=== PATIENT | male | born 1990 | race Caucasian/White ===

== ENCOUNTER 2017-05-16 18:45 | Emergency (ER) | END 2017-05-16 23:47 | disposition home or self-care (01) ==

== ENCOUNTER 2017-06-04 20:03 | Emergency (ER) | END 2017-06-04 21:19 | disposition home or self-care (01) ==

== ENCOUNTER 2017-11-19 18:46 | Emergency (ER) | END 2017-11-19 19:55 | disposition home or self-care (01) ==